=== PATIENT | female | born 1970 | race Caucasian/White ===

== ENCOUNTER 2016-09-29 12:07 | Emergency (ER) | payer MEDICAID ==
[2016-09-29] MEDS ORDERED: Pantoprazole 40 MG VIAL ONE (12:25)
[2016-09-29 12:29] LABS: #Basophils 0.1 thou/uL (0.0-0.2); #Eosinphils 0.2 thou/uL (0.0-0.7); #Lymphocytes 4.2 thou/uL (1.20-3.40); #Monocytes 0.5 thou/uL (0.11-0.59); #Neutrophils 3.9 thou/uL (1.40-6.50); %Basophils 0.7 % (0.0-1.0); %Eosinophils 2.5 % (0.0-10.0); %Lymphocytes 47.2 % (21.0-51.0); %Monocytes 5.9 % (0.0-10.0); %Neutrophils 43.8 % (42.0-75.0); Hemoglobin 13.1 g/dL (12.0-16.0); Mean Corpuscular Hemoglobin 31.8 pg (27.0-31.0); Mean Corpuscular Volume 90.9 fl (81.0-99.0); Mean Platelet Volume 7.7 fL (7.4-10.4); Platelet Count 227 thou/uL (130-400); RBC Distribution Width 12.1 % (11.5-14.5); Red Blood Cell (RBC) Count 4.11 mill/uL (4.20-5.40); White Blood Cell (WBC) Count 8.8 thou/uL (4.8-10.8)
[2016-09-29 12:46] LABS: ALT (SGPT) 37 U/L (8-55); AST (SGOT) 22 U/L (5-34); Albumin 4.1 g/dL (3.5-5.0); Alkaline Phosphatase 47 U/L (40-150); Anion Gap 14 mmol/L (10-20); BUN (Urea Nitrogen) 8 mg/dL (7.0-18.7); Bilirubin, Total 0.4 mg/dL (0.2-1.2); Calc. Creatinine Clearance 0 mL/min (70-130); Calcium 9.3 mg/dL (7.8-10.44); Carbon Dioxide 22 mmol/L (22-29); Chloride 108 mmol/L (98-107); Estimated GFR-MDRD Greater than 90; Globulin 3.6 g/dL (2.4-3.5); Glucose 102 mg/dL (70-105); Potassium 3.9 mmol/L (3.5-5.1); Protein, Total 7.7 g/dL (6.0-8.3); Sodium 140 mmol/L (136-145)
[2016-09-29 12:48] LABS: CKMB 1.3 ng/mL (0-6.6); Troponin I Less than 0.010 ng/mL (< 0.028)
--- NOTE | 2016-09-29 18:09 | RAD ---
PORTABLE CHEST 09/29/16 An AP portable film at 1223 is presented with no prior films available for comparison. The heart is normal in size and the lungs are clear. No infiltrate or effusion was seen. There is no vascular congestion or edema. The mediastinum was unremarkable in appearance. There may be some jero cific tendonitis in the right shoulder. IMPRESSION: No acute thoracic findings. POS: HOME
== END 2016-09-29 13:12 | disposition home or self-care (01) ==
LOC: BURERS 12:07
DX: R07.89 Other chest pain (principal); E11.9 Type 2 diabetes mellitus without complications; E03.9 Hypothyroidism, unspecified; E78.5 Hyperlipidemia, unspecified; I10 Essential (primary) hypertension; F32.9 Major depressive disorder, single episode, unspecified; F41.9 Anxiety disorder, unspecified; Z79.82 Long term (current) use of aspirin; Z79.4 Long term (current) use of insulin; Z79.899 Other long term (current) drug therapy
CPT/HCPCS: 71010; 80053; 82553; 84484; 85025; 93005; 96374; C9113

== ENCOUNTER 2016-11-19 15:25 | Outpatient (CLI) | payer MEDICAID ==
--- NOTE | 2016-11-19 20:57 | RAD ---
RIGHT SHOULDER THREE VIEWS: 11/19/16 There is a large calcific density just at and lateral to the greater tubercle suggestive of calcific tendinitis in one of the tendons that attach here. No fracture, dislocation, or AC joint widening w as seen. There is some bony spurring along the undersurface of the AC joint. A small bony spicule of f of the acromion is probably from an old injury. IMPRESSION: 1. 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 2. AC spurring that could cause some impingement. POS: HOME
== END 2016-11-19 15:26 | disposition home or self-care (01) ==
LOC: BURRAD 15:25
PROVIDERS: ATTEND Family Medicine
DX: M25.511 Pain in right shoulder (principal); M77.9 Enthesopathy, unspecified; M75.31 Calcific tendinitis of right shoulder

== ENCOUNTER 2017-03-02 09:52 | Emergency (ER) | payer MEDICAID, OTHER ==
[2017-03-02] MEDS ORDERED: Ketorolac Tromethamine 30 MG/ML VIAL ONE (10:10)
[2017-03-02] MEDS ORDERED: diphenhydrAMINE 50 MG/ML VIAL ONE (10:10)
[2017-03-02] MEDS ORDERED: Metoclopramide HCl 10 MG/2 ML VIAL ONE (10:10)
[2017-03-02] MEDS ORDERED: Morphine 4 MG/ML Carpuject ONE (10:36)
[2017-03-02] MEDS ORDERED: methylPREDNISolone Sod Succ/PF 125 MG/2 ML VIAL ONE (11:08)
== END 2017-03-02 11:40 | disposition home or self-care (01) ==
LOC: BURERS 09:52
DX: G43.909 Migraine, unspecified, not intractable, without status migrainosus (principal); E11.9 Type 2 diabetes mellitus without complications; E03.9 Hypothyroidism, unspecified; E78.5 Hyperlipidemia, unspecified; I10 Essential (primary) hypertension; F43.10 Post-traumatic stress disorder, unspecified; F41.9 Anxiety disorder, unspecified; Z79.899 Other long term (current) drug therapy; Z79.4 Long term (current) use of insulin; Z79.82 Long term (current) use of aspirin
CPT/HCPCS: 96365; 96375; J1200; J1885; J2270; J2765; J2930

== ENCOUNTER 2017-03-30 08:56 | Emergency (ER) | payer OTHER ==
[2017-03-30] MEDS ORDERED: Ibuprofen 800 MG TAB ONE (09:12)
[2017-03-30] MEDS ORDERED: HYDROcodone/Acetaminophen 10/325 mg Tablet ONE (09:12)
[2017-03-30] MEDS ORDERED: Sulfameth/Trimethoprim DS 800-160mg TAB ONE (10:01)
--- NOTE | 2017-03-30 21:24 | CT ---
CT OF THE FACIAL BONES 03/30/[address] of the face was performed following trauma. Axial slices were acquired, then coronal and sa gittal reconstructions were done. Soft tissue swelling is seen anterior to the right side of the maxilla and extending inferiorly a bit . Several views suggests a very tiny crack in the anterior wall of the right maxillary sinus. There m ay be a small crack in the lateral wall as well. There is mucosal thickening throughout the right max illary sinus. The other paranasal sinuses are clear. The orbital rims and zygomatic arches appear int act. There is no nasal fracture. The mandible shows no sign of fracture. IMPRESSION: Suspicion of small fractures involving the anterior and lateral swann of the right maxillary sinus. T here is also mucosal thickening in that sinus. POS: HOME
== END 2017-03-30 10:09 | disposition home or self-care (01) ==
LOC: BURERS 08:56
DX: S02.40CA Maxillary fracture, right side, initial encounter for closed fracture (principal); G43.909 Migraine, unspecified, not intractable, without status migrainosus; E03.9 Hypothyroidism, unspecified; E78.5 Hyperlipidemia, unspecified; I10 Essential (primary) hypertension; F43.10 Post-traumatic stress disorder, unspecified; F41.9 Anxiety disorder, unspecified; W22.8XXA Striking against or struck by other objects, initial encounter
CPT/HCPCS: 70486

== ENCOUNTER 2017-06-07 14:06 | Emergency (ER) | payer OTHER ==
[2017-06-07 14:30] LABS: #Basophils 0.1 thou/uL (0.0-0.2); #Eosinphils 0.2 thou/uL (0.0-0.7); #Lymphocytes 3.8 thou/uL (1.20-3.40); #Monocytes 0.7 thou/uL (0.11-0.59); #Neutrophils 6.7 thou/uL (1.40-6.50); %Basophils 0.6 % (0.0-1.0); %Eosinophils 1.4 % (0.0-10.0); %Lymphocytes 33.3 % (21.0-51.0); %Monocytes 6.3 % (0.0-10.0); %Neutrophils 58.4 % (42.0-75.0); Hemoglobin 14.4 g/dL (12.0-16.0); Mean Corpuscular HGB CONC 34.7 g/dL (32.0-36.0); Mean Corpuscular Hemoglobin 31.5 pg (27.0-31.0); Mean Corpuscular Volume 90.9 fl (81.0-99.0); Mean Platelet Volume 7.7 fL (7.4-10.4); Platelet Count 242 thou/uL (130-400); RBC Distribution Width 11.9 % (11.5-14.5); Red Blood Cell (RBC) Count 4.55 mill/uL (4.20-5.40); White Blood Cell (WBC) Count 11.5 thou/uL (4.8-10.8)
[2017-06-07] MEDS ORDERED: diphenhydrAMINE 50 MG/ML VIAL ONE (14:31)
[2017-06-07] MEDS ORDERED: Morphine 10 MG/ML VIAL ONE (14:31)
[2017-06-07 14:35] LABS: PTT 28.4 SEC (22.9-36.1); Prothrombin Time 12.8 SEC (12.0-14.7)
[2017-06-07 14:37] LABS: Bilirubin Negative (Negative); Blood, Urine Trace (Negative); Clarity Slightly Cloudy (Clear); Glucose, Urine (Dipstick) Negative (Negative); Leukocyte Negative (Negative); Nitrite Negative (Negative); Pregnancy Test - Urine (BHCG) Negative (Negative); Pregu Control Background? CLEAR/WHITE (CLR/WHITE); Pregu Control Bar Appear? YES (CONTROL BAR); Protein, Urine (Dipstick) > or equal to 300 mg/dL (Neg-Trace); Urobilinogen 0.2 mg/dL (0.2-1.0); pH, Urine 5.5 (5.0-9.0)
[2017-06-07 14:43] LABS: RBC/HPF 0-3 HPF (0-3); WBC/HPF None Seen HPF (0-3)
[2017-06-07 14:44] LABS: Bacteria/HPF None Seen HPF (None Seen); Crystals/HPF 2+ AMORPH URATES HPF (Negative); Hyaline Casts/LPF NONE SEEN LPF (0-3 Hyaline); Other Casts/LPF None Seen LPF (0-3 Hyaline); Oval Fat Bodies/HPF None Seen HPF (None Seen); Renal Epithelial None Seen HPF (0-3); Sperm/HPF None Seen HPF (None Seen); Squamous Epithelial 0-3 HPF (0-3); Transitional Epithelial NONE SEEN HPF (0-3); Trichomonas/HPF None Seen HPF (None Seen); Yeast-All Forms None Seen HPF (None Seen)
[2017-06-07 14:45] LABS: ALT (SGPT) 46 U/L (8-55); AST (SGOT) 25 U/L (5-34); Albumin 4.3 g/dL (3.5-5.0); Alkaline Phosphatase 52 U/L (40-150); Anion Gap 15 mmol/L (10-20); BUN (Urea Nitrogen) 10 mg/dL (7.0-18.7); Bilirubin, Total 0.4 mg/dL (0.2-1.2); Calc. Creatinine Clearance 0 mL/min (70-130); Calcium 9.5 mg/dL (7.8-10.44); Carbon Dioxide 24 mmol/L (22-29); Chloride 104 mmol/L (98-107); Estimated GFR-MDRD Greater than 90; Glucose 210 mg/dL (70-105); Lipase 43 U/L (8-78); Protein, Total 8.3 g/dL (6.0-8.3); Sodium 139 mmol/L (136-145)
[2017-06-07] MEDS ORDERED: Ondansetron HCl/PF 4 MG/2 ML Vial ONE (15:33)
--- NOTE | 2017-06-07 20:40 | RAD ---
PORTABLE CHEST 06/07/17 An AP portable film at 1431 is compared with an 09/29/16 study. The heart is normal in size and the lungs are clear. No infiltrate or effusion was seen. There is no congestive change. IMPRESSION: No acute thoracic finding. POS: HOME
--- NOTE | 2017-06-07 20:47 | CT ---
CT ABDOMEN AND PELVIS WITH CONTRAST: 06/07/[address] of the abdomen and pelvis was performed after giving IV contrast. Oral contrast was withhel d by request. The lung bases are clear. The hepatic size seems somewhat generous, but no space occupying disease or dilated ducts were seen. there has been a prior cholecystectomy. The spleen, pancreas, adrenal gland s, kidneys, and abdominal aorta showed no acute findings. There is no distention of bowel or inflammatory change around bowel. The appendix was identified and appears normal. No free air or free fluid was seen. CT of the pelvis shows no pelvic masses, fluid collections, or inflammatory changes. IMPRESSION: Mild hepatic enlargement. Exam otherwise unremarkable. POS: HOME
== END 2017-06-07 15:45 | disposition home or self-care (01) ==
LOC: BURERS 14:06
DX: A08.4 Viral intestinal infection, unspecified (principal); G43.909 Migraine, unspecified, not intractable, without status migrainosus; E11.9 Type 2 diabetes mellitus without complications; E03.9 Hypothyroidism, unspecified; E78.5 Hyperlipidemia, unspecified; I10 Essential (primary) hypertension; F41.9 Anxiety disorder, unspecified; F32.9 Major depressive disorder, single episode, unspecified; F43.10 Post-traumatic stress disorder, unspecified
CPT/HCPCS: 51701; 71045; 74177; 80053; 81003; 81015; 81025; 83690; 84443; 85025; 85610; 85730; 94760; 96374; 96375; A4353; J1200; J2270; J2405

== ENCOUNTER 2018-11-24 23:57 | Emergency (ER) | payer OTHER ==
[2018-11-25] MEDS ORDERED: Ketorolac Tromethamine 30 MG/ML VIAL ONE (00:41)
[2018-11-25] MEDS ORDERED: diphenhydrAMINE 50 MG/ML VIAL ONE (00:46)
[2018-11-25] MEDS ORDERED: Metoclopramide HCl 10 MG/2 ML VIAL ONE (00:46)
== END 2018-11-25 01:23 | disposition home or self-care (01) ==
LOC: BURERS 23:57
DX: G43.109 Migraine with aura, not intractable, without status migrainosus (principal); E11.9 Type 2 diabetes mellitus without complications; E03.9 Hypothyroidism, unspecified; E78.5 Hyperlipidemia, unspecified; E78.00 Pure hypercholesterolemia, unspecified; I10 Essential (primary) hypertension; Z79.899 Other long term (current) drug therapy; Z79.4 Long term (current) use of insulin
CPT/HCPCS: 96365; 96367; 96375; J1200; J1885; J2765